=== PATIENT | male | born 1960 | race Caucasian/White ===

== ENCOUNTER 2019-03-15 17:40 | Emergency (ER) | payer OTHER ==
[~2019-03-15] VITALS: Ht 190.5 cm; Wt 154.2 kg
[2019-03-15] MEDS: TDAP DIPH,PERTUSS,TET VAC/PF 0.5 ML DISP.SYRIN IM ONE (18:07)
--- NOTE | 2019-03-15 18:07 | NUR ---
PATIENT WAS SEEN BY . PATIENT HAS HIS OWN DRESSING ON HIS INJURED FINGER. WOUND WILL BE IRRIGATED SHORTLY.
[2019-03-15] MEDS ORDERED: TDAP DIPH,PERTUSS,TET VAC/PF 0.5 ML DISP.SYRIN IM ONE (18:09)
--- NOTE | 2019-03-15 18:16 | NUR ---
Antonio aiken in ED - 03/15/19 at 1832 by STACIE WOUND IRRIGATION IN PROCESS...
[2019-03-15] MEDS: LET TOPICAL SOLUTION 8 ML UDC TP ONE (18:24)
[2019-03-15] MEDS ORDERED: LET TOPICAL SOLUTION 8 ML UDC ONE ×2 (18:26→18:28)
--- NOTE | 2019-03-15 18:32 | NUR ---
PATIENT STATES HE WANTS HIS FINGER NUMBED BEFORE IRRIGATION. MD NOTIFIED. LET SOLUTION APPLIED.
--- NOTE | 2019-03-15 18:53 | NUR ---
FINGER DRESSED WITH STERILE DRESSING INSTRUCTED BY . DC, RX AND FOLLOW UP INSTRUCTIONS GIVEN AND EXPLAINED TO PATIENT AND WHO STATE THEY UNDERSTAND ALL INSTRUCTIONS.
== END 2019-03-15 18:58 | disposition home or self-care (01) ==
LOC: ER 17:48
DX: S61.302A Unspecified open wound of right middle finger with damage to nail, initial encounter (principal); E66.01 Morbid (severe) obesity due to excess calories; I10 Essential (primary) hypertension; W26.0XXA Contact with knife, initial encounter; Y93.89 Activity, other specified; Y92.89 Other specified places as the place of occurrence of the external cause; Y99.8 Other external cause status
CPT/HCPCS: 73140; 90715; A4217; A4663

== ENCOUNTER 2019-03-17 09:53 | Emergency (ER) | payer OTHER ==
[~2019-03-17] VITALS: Ht 190.5 cm; Wt 154.2 kg
--- NOTE | 2019-03-17 10:06 | NUR ---
at bedside to re-examine pt's right mid-finger injury.
[2019-03-17] MEDS ORDERED: IBUPROFEN 800 MG TABLET PO ONE (10:30)
[2019-03-17] MEDS ORDERED: CEphaleXIN 500 MG CAPSULE PO ONE (10:30)
[2019-03-17] MEDS ORDERED: IBUPROFEN 800 MG TABLET ONE (10:31)
[2019-03-17] MEDS ORDERED: CEphaleXIN 500 MG CAPSULE ONE (10:32)
--- NOTE | 2019-03-17 10:46 | NUR ---
Wet- to dry dressing done as ordered, patient tolerated well procedure.
--- NOTE | 2019-03-17 10:54 | NUR ---
dcd instructions and prescription given to pt. who verbalized understanding. patient left room [id number]. 0/10 pain.
== END 2019-03-17 10:55 | disposition home or self-care (01) ==
LOC: ER 09:53
DX: S68.112D Complete traumatic metacarpophalangeal amputation of right middle finger, subsequent encounter (principal); E66.01 Morbid (severe) obesity due to excess calories; I16.0 Hypertensive urgency; X58.XXXD Exposure to other specified factors, subsequent encounter
CPT/HCPCS: A4663